=== PATIENT | female | born 1995 | race Caucasian/White ===

== ENCOUNTER 2018-07-30 05:30 | Inpatient (IN) | payer OTHER ==
[2018-07-30 06:27] LABS: ADD MAN DIFF? NO
[2018-07-30] MEDS ORDERED: CARBOPROST 250 MCG INJ IM ×2 (06:30→09:00)
[2018-07-30] MEDS ORDERED: MISOPROSTOL 200 MCG TAB PR ×2 (06:30→09:00)
[2018-07-30] MEDS ORDERED: OXYTOCIN 30 UNITS/LR 500 ML IV ×2 (06:30→09:00)
[2018-07-30] MEDS: LACTATED RINGER'S 1,000 ML IV ×3 (06:30→23:30)
[2018-07-30] MEDS ORDERED: METHYLERGONOVINE 0.2 MG INJ IM ×2 (06:30→09:00)
[2018-07-30 06:42] LABS: BASOPHILS % 0.1 % (0.0-2.0); EOSINOPHILS # 0.1 10^3/ul (0.0-0.5); EOSINOPHILS % 1.3 % (0.0-7.0); HEMATOCRIT 33.9 % (37.0-47.0); HEMOGLOBIN 10.8 g/dl (12.0-16.0); LYMPHOCYTES # 1.7 10^3/ul (0.8-2.9); LYMPHOCYTES % 20.7 % (15.0-51.0); MEAN CORPUSCULAR HEMOGLOBIN 27.1 pg (29.0-33.0); MEAN CORPUSCULAR HGB CONC 31.9 g/dl (32.0-37.0); MEAN PLATELET VOLUME 11.5 fl (7.4-10.4); MONOCYTE # 0.4 10^3/ul (0.3-0.9); MONOCYTES % 5.2 % (0.0-11.0); PLATELET COUNT 195 10^3/UL (140-415); RED BLOOD COUNT 3.99 10^6/ul (4.20-5.40)
[2018-07-30 06:42] LABS: WHITE BLOOD COUNT 8.4 10^3/ul (4.8-10.8)
[2018-07-30 06:52] LABS: INR 0.93; PROTIME 12.6 Sec (11.9-14.9)
[2018-07-30 06:53] LABS: PARTIAL THROMBOPLASTIN TIME 28.7 Sec (23.0-35.0)
[2018-07-30] MEDS ORDERED: OXYTOCIN 30 UNITS/LR 500 ML BAG IV (07:00)
[2018-07-30] MEDS: ONDANSETRON 4 MG INJ IV ×3 (07:23→18:33)
[2018-07-30] MEDS: CITRIC ACID/NA CITRATE 30 ML CUP PO (07:23)
[2018-07-30 07:37] LABS: HEPATITIS B SURFACE ANTIGEN NEGATIVE (NEGATIVE)
[2018-07-30] MEDS ORDERED: PHENYLephrine (100 MCG/ML) 10ML SYG (07:48)
[2018-07-30] MEDS ORDERED: morphine SULFATE/PF (10 MG/10 ML) INJ (07:49)
[2018-07-30] MEDS ORDERED: OXYTOCIN 10 UNIT INJ (07:49)
[2018-07-30] MEDS: CEFAZOLIN 2 GM/50 ML (PMX) 50 ML IVPB ×4 (07:50→23:30)
[2018-07-30] MEDS ORDERED: KETOROLAC 30 MG INJ (08:04)
[2018-07-30] MEDS ORDERED: METOCLOPRAMIDE 10 MG INJ (08:04)
[2018-07-30] MEDS ORDERED: DEXAMETHASONE 4 MG/ML 1 ML INJ (08:04)
[2018-07-30] MEDS ORDERED: HYDROCODONE/APAP (5/325) TAB PO (08:30)
[2018-07-30] MEDS ORDERED: DIPHENHYDRAMINE 50 MG INJ IV (08:30)
[2018-07-30] MEDS ORDERED: METOCLOPRAMIDE 10 MG INJ IV (08:30)
[2018-07-30] MEDS ORDERED: ACETAMINOPHEN 500 MG TAB PO (08:30)
[2018-07-30] MEDS ORDERED: HYDROmorphONE 1 MG/5 ML IV SYRINGE IV ×2 (08:30)
[2018-07-30] MEDS ORDERED: NALBUPHINE HCL (10 MG/1 ML) INJ IV (08:30)
[2018-07-30] MEDS ORDERED: EPHEDrine SULFATE 50 MG/5 ML SYG IV (08:30)
[2018-07-30] MEDS ORDERED: OXYCODONE/ACETAMINOPHEN (5/325) TAB PO ×2 (08:30→09:00)
[2018-07-30] MEDS ORDERED: NALOXONE (0.4 MG/ML) INJ IV (08:30)
[2018-07-30] MEDS ORDERED: FENTAnyl 50 MCG/ML VIAL IV ×2 (08:30)
[2018-07-30] MEDS ORDERED: HYDROmorphONE 0.5 MG/0.5 ML SYG IV ×2 (08:30)
[2018-07-30] MEDS ORDERED: MEPERIDINE 25 MG INJ IV (08:30)
[2018-07-30] MEDS ORDERED: morphine 2 MG INJ IV ×2 (08:30)
[2018-07-30] MEDS ORDERED: NACL 0.9% 3 ML SYG IV (09:00)
[2018-07-30] MEDS ORDERED: LANOLIN HPA 1 PKT TOP (09:00)
[2018-07-30] MEDS ORDERED: HETASTARCH 6% NACL 500 ML (09:07)
[2018-07-30] MEDS: HETASTARCH 6% NACL 500 ML BAG IV* (09:22)
[2018-07-30] MEDS: OXYTOCIN 30 UNITS/LR 500 ML IV ×2 (10:06→13:46)
[2018-07-30] MEDS ORDERED: IBUPROFEN 800 MG TAB PO (14:00)
[2018-07-30 15:00] LABS: RAPID PLASMA REAGIN NONREACTIVE (NR)
[2018-07-30] MEDS: KETOROLAC 30 MG INJ IV (17:13)
[2018-07-30] MEDS: DIPHENHYDRAMINE 50 MG INJ IV (23:30)
[2018-07-31] MEDS: KETOROLAC 30 MG INJ IV (05:31)
[2018-07-31] MEDS: LACTATED RINGER'S 1,000 ML IV ×2 (06:06→14:06)
[2018-07-31] MEDS: IBUPROFEN 800 MG TAB PO ×3 (07:50→22:10)
[2018-07-31] MEDS: CEFAZOLIN 2 GM/50 ML (PMX) 50 ML IVPB (08:08)
[2018-07-31 08:14] LABS: ADD MAN DIFF? NO
[2018-07-31 08:22] LABS: WHITE BLOOD COUNT 8.3 10^3/ul (4.8-10.8)
[2018-07-31 08:22] LABS: BASOPHILS % 0.1 % (0.0-2.0); EOSINOPHILS # 0.1 10^3/ul (0.0-0.5); EOSINOPHILS % 0.6 % (0.0-7.0); HEMATOCRIT 24.1 % (37.0-47.0); HEMOGLOBIN 7.6 g/dl (12.0-16.0); LYMPHOCYTES # 1.8 10^3/ul (0.8-2.9); LYMPHOCYTES % 21.4 % (15.0-51.0); MEAN CORPUSCULAR HEMOGLOBIN 27.2 pg (29.0-33.0); MEAN CORPUSCULAR HGB CONC 31.5 g/dl (32.0-37.0); MEAN CORPUSCULAR VOLUME 86.4 fl (82.0-101.0); MEAN PLATELET VOLUME 11.3 fl (7.4-10.4); MONOCYTE # 0.5 10^3/ul (0.3-0.9); NEUTROPHIL # 5.9 10^3/ul (1.6-7.5); NEUTROPHILS % 71.3 % (39.0-77.0); PLATELET COUNT 146 10^3/UL (140-415); RED BLOOD COUNT 2.79 10^6/ul (4.20-5.40); RED CELL DISTRIBUTION WIDTH 13.7 % (11.5-14.5)
[2018-07-31] MEDS: FERROUS SULFATE (EC) 325 MG TAB PO ×2 (09:23→21:14)
[2018-08-01] MEDS: IBUPROFEN 800 MG TAB PO ×3 (05:36→22:47)
[2018-08-01] MEDS: FERROUS SULFATE (EC) 325 MG TAB PO ×2 (08:39→22:47)
[2018-08-01 08:56] LABS: HEMATOCRIT 23.8 % (37.0-47.0); HEMOGLOBIN 7.7 g/dl (12.0-16.0)
[2018-08-01] MEDS: OXYCODONE/ACETAMINOPHEN (5/325) TAB PO (10:51)
[2018-08-02] MEDS: IBUPROFEN 800 MG TAB PO (05:37)
[2018-08-02] MEDS: FERROUS SULFATE (EC) 325 MG TAB PO (09:00)
== END 2018-08-02 14:30 | disposition home or self-care (01) | DRG 788 ==
LOC: L-D 05:30 → PP1 14:05
PROVIDERS: Obstetrics & Gynecology
PROC: 10D00Z1 Extraction of Products of Conception, Low, Open Approach (ICD-10-PCS; principal; 2018-07-31)
DX: O98.82 Other maternal infectious and parasitic diseases complicating childbirth (principal); Z3A.39 39 weeks gestation of pregnancy; Z37.0 Single live birth
CPT/HCPCS: 85014; 85018; 85025; 85610; 85730; 86592; 86850; 86900; 86901; 87340; 99464